=== PATIENT | male | born 1990 | race Caucasian/White ===

== ENCOUNTER → 2022-10-31 | Outpatient (CLI) | payer BC, SELFPAY ==
--- NOTE | 2022-10-30 09:30 | VAS_PTH ---
PATIENT: CORRINE MOLINA [facility] U#:[id number] AGE/SX: 31/M ROOM: RE10/31/[address]: Dr. Tr Honeycutt MD : 1990 BED: DIS: 10/31/2022 SPEC #: [id number] RECD: 10/31/22 08:51 STATUS: JO JAMIE #: [id number] ALINA: 10/30/22 09:[address]: Tr Honeycutt DEPT: SURGICAL PATHOLOGY RECD BY: Karina Aguero Tissues: A - Vas deferens, NOS B - Vas deferens, NOS Procedures: Surgery Specimen Level II HEADER OPERATION: Bilateral partial vasectomy PRE-OP DIAGNOSIS: Sterilization TISSUE SUBMITTED: A ? Right vas deferens, B ? Left vas deferens MICROSCOPIC DIAGNOSIS A. Right vas deferens, segmental vasectomy: Complete cross-sections of vas deferens with no pathologic change. B. Left vas deferens, segmental vasectomy: Complete cross-sections of vas deferens with no pathologic change. AM:sung 11/01/2022 MICROSCOPIC DESCRIPTION Slides are reviewed. GROSS DESCRIPTION A - Received is one container designated right vas deferens. The specimen consists of a cylindrical segment of pink-cabral soft tissue measuring 0.6 cm in length and 0.2 cm in maximum diameter. The specimen is serially sectioned and totally submitted in one cassette. B - Received is one container designated left vas deferens. The specimen consists of a cylindrical segment of pink-cabral soft tissue measuring 1 cm in length and 0.2 cm in maximum diameter. The specimen is serially sectioned and totally submitted in one cassette. / AM:sung 10/31/2022 TC:4 CPT: 52464 x2
== END | disposition home or self-care (01) ==
PROVIDERS: Visit Provider Surgery
DX: Z30.2 Encounter for sterilization (principal)
CPT/HCPCS: 88302

== ENCOUNTER → 2022-12-06 | Outpatient (CLI) | payer BC, SELFPAY ==
[2022-12-07 01:42] LABS: Semen Analysis Post Vas ABSENT
[2022-12-09 12:58] LABS: Pathologist Review Reviewed
== END | disposition home or self-care (01) ==
LOC: LAB 15:51
PROVIDERS: Referring Provider Surgery; Visit Provider Surgery
DX: Z30.2 Encounter for sterilization (principal); Z98.52 Vasectomy status
CPT/HCPCS: 89321

== ENCOUNTER → 2022-12-09 | Outpatient (CLI) | payer BC, SELFPAY ==
[2022-12-10 00:07] LABS: Semen Analysis Post Vas ABSENT
[2022-12-10 13:27] LABS: Pathologist Review Reviewed
== END | disposition home or self-care (01) ==
LOC: LABSPEC 16:32
PROVIDERS: Referring Provider Surgery; Visit Provider Surgery
DX: Z98.52 Vasectomy status (principal); Z30.2 Encounter for sterilization
CPT/HCPCS: 89321

== ENCOUNTER → 2023-04-23 | Outpatient (CLI) | payer BC, SELFPAY ==
--- NOTE | 2023-04-23 15:39 | MRI_ITS ---
STUDY: MRI BRAIN WITH AND WITHOUT CONTRAST REASON FOR EXAM: Male, 32 years old. New onset headache, vision change, presyncopal TECHNIQUE: Standardized multiplanar fat and water weighted pulse sequences were obtained. IV 22 ml CLARISCAN was administered for the contrast portion of the examination. COMPARISON: None. FINDINGS: Normal size of the ventricles and extra-axial spaces for the patient''s age. Normal white matter tracts of the supratentorial brain. There is no evidence for recent intracranial ischemia or other cause of cytotoxic edema on diffusion weighted imaging (DWI). Normal T2* images of the brain without demonstrated susceptibility artifact. There is no demonstrated hemosiderin stain. Normal bilateral basal ganglia. Normal thalami. There is no extra-axial fluid accumulation. Normal flow voids within the major intracranial circulation suggesting patency by spin echo criteria. Normal venous enhancement. There is no enhancing intra-axial or extra-axial abnormality. Normal sella turcica, pituitary gland, infundibular stalk, optic chiasm and hypothalamus. Normal tectal plate and pineal gland. Normal midbrain, alayna and medulla. Normal cerebellum. Normal basal cisterns. Normal bilateral temporal bones. Normal bilateral internal auditory canals. No demonstrated orbital abnormality, within the constraints of a routine brain study. There is mild mucosal thickening of the visualized paranasal sinuses. There is fluid in the right maxillary region. Normal calvarium and skull base. Normal visualized soft tissue structures. Normal visualized upper cervical spine. MRI/Brain W/WO Contrast IMPRESSION: Normal unenhanced and enhanced MRI of the brain. Sinusitis. Electronically Signed: Carlos A Calderon MD at 23:34 EDT ,
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
== END | disposition home or self-care (01) ==
LOC: MRI 15:30
PROVIDERS: PCP Internal Medicine; Referring Provider Internal Medicine; Visit Provider Internal Medicine
DX: R51.9 Headache, unspecified (principal); R55 Syncope and collapse
CPT/HCPCS: 70030; 70553; A9575